=== PATIENT | female | born 1935 | race Caucasian/White ===

== ENCOUNTER → 2018-06-24 | Day surgery (SDC) | payer OTHER ==
[~2018-06-24] VITALS: Ht 149.8 cm; Wt 63.5 kg
[~2018-06-24] MED LIST: ASPIRIN CHILDRE81 MG PO; CALCIUM 600+D1 EACH PO; CO Q-10200 MG PO; COZAAR100 MG PO; CRESTOR5 MG PO; FISH OIL + D31 EACH PO; METOPROLOL SUCC50 M2 PO; NORVASC5 MG PO; ZOLOFT50 MG PO
[2018-06-24 08:20] VITALS: BP 130/42
[2018-06-24 10:28] VITALS: BP 112/43
[2018-06-24 10:43] VITALS: BP 123/46
[2018-06-24 10:57] VITALS: BP 134/46
== END | disposition home or self-care (01) ==
LOC: SDC 06-20 14:45
DX: K59.00 Constipation, unspecified (principal); K57.30 Diverticulosis of large intestine without perforation or abscess without bleeding; K64.8 Other hemorrhoids; K29.60 Other gastritis without bleeding; K21.0 Gastro-esophageal reflux disease with esophagitis; K44.9 Diaphragmatic hernia without obstruction or gangrene; I10 Essential (primary) hypertension; E78.5 Hyperlipidemia, unspecified; M19.90 Unspecified osteoarthritis, unspecified site; F32.9 Major depressive disorder, single episode, unspecified; Z88.1 Allergy status to other antibiotic agents; Z85.820 Personal history of malignant melanoma of skin; Z87.11 Personal history of peptic ulcer disease; Z86.010 Personal history of colon polyps; Z79.899 Other long term (current) drug therapy